=== PATIENT | female | born 1940 | race Caucasian/White ===

== ENCOUNTER 2017-02-20 12:33 | Emergency (ER) | payer MEDICARE, BC ==
--- NOTE | 2017-02-20 12:54 | EDM.PDOC ---
ED HPI GENERAL MEDICAL PROBLEM - General Chief Complaint: Skin Complaint Stated Complaint: POSSIBLE CELLULITIS Time Seen by Provider: 02/20/17 12:50 Source of Information: Reports: Patient History Limitations: Reports: No Limitations - History of Present Illness INITIAL COMMENTS - FREE TEXT/NARRATIVE: According to patient she claims that she bumped her right elbow into the wall and sustained an small cut over the posterior aspect of the elbow. She did clean it up and also keep it covered with band air. But over the past 3 days she has noticed redness and swelling over the posterior aspect of the elbow now. The redness has been spreading and has got painful. She can move the elbow with out any pain or discomfort. No fever or chills. No nausea, vomiting or malaise. Pt is not sure of her tetanus shot. Duration: Week(s): (1) Location: Reports: Upper Extremity, Right Quality: Reports: Ache Severity: Mild Associated Symptoms: Denies: Confusion, Chest Pain, Cough, Fever/Chills, Nausea/ Vomiting, Rash, Shortness of Breath, Syncope, Weakness Right Elbow Pain Score (Numeric/FACES): 3 - Related Data Allergies Allergy/AdvReac Type Severity Reaction Status Date / Time codeine Allergy Nausea Verified 02/20/17 13:24 not sure Allergy Intermediate Nausea Uncoded 05/11/15 09:11 Home Meds: Home Meds Alendronate [Fosamax] 70 mg PO DAILY 05/11/15 [History] Hydrochlorothiazide [Hydrochlorothiazide] 25 mg PO DAILY 05/11/15 [History] Simvastatin [Simvastatin] 20 mg PO QPM 05/11/15 [History] Past Medical History HEENT History: Reports: Sinusitis 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: Other (See Below) Other OB/BYN History: C section x 4 - Infectious Disease History Infectious Disease History: Reports: Chicken Pox, Measles, Mumps - Past Surgical History Female Surgical History: Reports: Section Social & Family History - Tobacco Use Smoking Status *Q: Never Smoker - Recreational Drug Use Recreational Drug Use: No Drug Use in Last 12 Months: No ED ROS GENERAL - Review of Systems Review Of Systems: See Below Constitutional: Denies: Fever, Chills HEENT: Denies: Throat Pain, Throat Swelling Respiratory: Denies: Shortness of Breath, Cough, Sputum Cardiovascular: Denies: Chest Pain, Lightheadedness GI/Abdominal: Denies: Abdominal Pain, Nausea, Vomiting Musculoskeletal: Denies: Joint Pain, Joint Swelling Skin: Reports: Erythema. Denies: Pruritis, Rash Neurological: Denies: Confusion, Dizziness Psychiatric: Denies: Agitation, Anxiety ED EXAM, SKIN/RASH Exam: See Below Exam Limited By: No Limitations General Appearance: Alert, WD/WN, No Apparent Distress Eye Exam: Bilateral Eye: EOMI, PERRL Ears: Normal External Exam, Normal Canal, Hearing Grossly Normal, Normal TMs Nose: Normal Inspection, Normal Mucosa, No Blood Throat/Mouth: Normal Inspection, Normal Lips, Normal Teeth, Normal Gums, Normal Oropharynx, Normal Voice, No Airway Compromise Head: Atraumatic, Normocephalic Neck: Normal Inspection, Supple, Non-Tender, Full Range of Motion Respiratory/Chest: No Respiratory Distress, Lungs Clear, Normal Breath Sounds, No Accessory Muscle Use, Chest Non-Tender Cardiovascular: Normal Peripheral Pulses, Regular Rate, Rhythm, No Edema, No Gallop, No JVD, No Murmur, No Rub Extremities: Normal Inspection, Normal Range of Motion, No Pedal Edema, Normal Capillary Refill Skin: Warm, Intact, Other (There is a small 1 cm scabbed wound over the psoterior aspect of the elnbow. there is erythema spreading approximatley 4cm aroundthe scab. the skin is swollen. Tender and warm to palpation.There isminimal serous drainage around the scab. Pt does have Good ROM fo the elbow joint.) Course - Vital Signs Text/Narrative:: It does appear like deep skin infection, or cellulitis of the right elbow. She had good ROM of the right elbow.Pt reassured she has cellulitis of the skin of right elbow and not joint infection. She did receive Tetanus toxoid today. Her CBC shows white count of 12.8. I have done clean sterile dressing of the wound. Advised daily dressing of the wound. Started her on Augmentin for 10 days. Also wound culture done, will followup with results. Followup in clinic if the redness and pain does not resolve in 3-5 days Or if she stats running fever with chills. Pt understand and agrees to the plan. Last Recorded V/S: Last Vital Signs Temp 97 F 02/20/17 13:10 Pulse 79 02/20/17 13:10 Resp 16 02/20/17 13:10 BP 119/63 02/20/17 13:10 Pulse Ox 98 02/20/17 13:10 - Orders/Labs/Meds Orders: Active Orders 24 hr Category Date Time Status Vaccines to be Administered [RC] PER UNIT ROUTINE Care 02/20/17 13:17 Active CULTURE WOUND + SMEAR [RM] Stat Lab 02/20/17 13:30 Received Labs: Laboratory Tests 02/20/17 Range/Units 13:30 WBC 12.8 H D (4.0-11.0) K/uL RBC 4.09 (3.80-5.80) M/uL Hgb 12.5 (11.5-16.5) g/dL Hct 36.7 L (37.0-47.0) % MCV 90 (76-96) fL MCH 30.6 (27.0-32.0) pg MCHC 34.1 (31.0-35.0) g/dL RDW 13.5 (11.0-16.0) % Plt Count 217 (150-500) K/uL MPV 11.2 H (6.0-10.0) fL Neut % (Auto) 74.8 H (45.0-70.0) % Lymph % (Auto) 16.5 L (20.0-40.0) % [place] % (Auto) 7.8 (3.0-10.0) % Eos % (Auto) 0.6 L (1.0-5.0) % Baso % (Auto) 0.3 (0.0-0.5) % Neut # (Auto) 9.58 H (2.00-7.50) K/uL Lymph # (Auto) 2.11 (1.50-4.00) K/uL [place] # (Auto) 1.00 H (0.20-0.80) K/uL Eos # (Auto) 0.08 (0.04-0.40) K/uL Baso # (Auto) 0.04 (0.02-0.10) K/uL Meds: Medications Discontinued Medications Generic Name Dose Route Start Last Admin Trade Name Freq PRN Reason Stop Dose Admin Tetanus/Diphtheria Toxoids 0.5 ml 02/20/17 13:17 02/20/17 13:27 Tenivac IM 02/20/17 13:18 0.5 ml .ONCE ONE Administration Departure - Departure Time of Disposition: 14:55 Disposition: Home, Self-Care 01 Condition: Good Clinical Impression: Cellulitis of right elbow - Discharge Information Instructions: Amoxicillin; Clavulanic Acid tablets, Cellulitis, Adult Referrals: PCP,None [Primary Care Provider] - Forms: ED Department Discharge Additional Instructions: Take Augmentin 1 tablet twice a day for 10 days. Take 1 tablet now, then repeat again tonight. Take in yogurt every day while on antibiotic. Culture of wound will be back in about 3-4 days. Keep area clean and dry. Change dressing every day. Apply Neosporin daily and cover. - Problem List & Annotations (1) Cellulitis of right elbow SNOMED Code(s): 820953124 Code(s): L03.113 - CELLULITIS OF RIGHT UPPER LIMB Status: Acute Current Visit: Yes - Problem List Review Problem List Initiated/Reviewed/Updated: Yes - My Orders Last 24 Hours: My Active Orders 02/20/17 13:17 Vaccines to be Administered [RC] PER UNIT ROUTINE 02/20/17 13:30 CULTURE WOUND + SMEAR [RM] Stat - Assessment/Plan Last 24 Hours: My Active Orders 02/20/17 13:17 Vaccines to be Administered [RC] PER UNIT ROUTINE 02/20/17 13:30 CULTURE WOUND + SMEAR [RM] Stat Assessment:: Right elbow cellulitis Plan: It does appear like deep skin infection, or cellulitis of the right elbow. She had good ROM of the right elbow.Pt reassured she has cellulitis of the skin of right elbow and not joint infection. She did receive Tetanus toxoid today. Her CBC shows elevated white countof 12.8. I have done clean sterile dressing of the wound. Advised daily dressing of the wound. Started her on Augmentin for 10 days. Also wound culture done, will followup with results. Followup in clinic if the redness and pain does not resolve in 3-5 days Or if she stats running fever with chills. Pt understand and agrees to the plan.
[2017-02-20] MEDS ORDERED: Amoxicillin/Clavulanate K 875-125 MG Tab ONE (13:10)
[2017-02-20] MEDS ORDERED: Diphtheria/Tetanus Toxoids,Adult (Td) 0.5 ML SDV IM ONE (13:17)
[2017-02-20 13:40] VITALS: BP 119/63
== END 2017-02-20 13:55 | disposition home or self-care (01) ==
LOC: LB.ED 12:33
DX: L03.113 Cellulitis of right upper limb (principal); Z88.5 Allergy status to narcotic agent; Z79.899 Other long term (current) drug therapy
CPT/HCPCS: 36415; 85025; 87070; 87077; 87186; 87205; 90471; 90714; 99284; A9270; 99283

== ENCOUNTER 2017-07-28 11:46 | Day surgery (SDC) | payer MEDICARE, BC ==
[~2017-07-28 11:46] MED LIST: Metoclopramide 10 MG/2 ML SDV IV PRN; Sodium Chloride 0.9% 10 ML Syringe FLUSH PRN
[2017-07-28] MEDS: Sodium Chloride 0.9% 1,000 ML IV SCH ×3 (12:00→14:46)
[2017-07-28] MEDS ORDERED: Propofol 500 MG/50 ML SDV ONE (14:00)
[2017-07-28 16:42] VITALS: BP 132/70
--- NOTE | 2017-07-28 20:52 | OR ---
DATE OF OPERATION: 07/28/2017 PREOPERATIVE DIAGNOSIS: Blood per rectum. POSTOPERATIVE DIAGNOSIS: Blood per rectum. PROCEDURE: Colonoscopy. ANESTHESIA: MAC. ESTIMATED BLOOD LOSS: None. COMPLICATIONS: None. INDICATION FOR THE PROCEDURE: The patient is a 76-year-old female who last week presented to the clinic with lower rectal bleeding. The patient was hemodynamically stable. She was sent home and scheduled for an outpatient colonoscopy. Last colonoscopy per patient was about 10 years ago. She was on a 10-year follow up plan. DESCRIPTION OF PROCEDURE: Informed consent was obtained from the patient. The patient was taken to the operating room, placed on table in the left lateral decubitus position. Monitored anesthesia care was administered. Digital rectal exam was normal. Colonoscope was then advanced through the anus directed toward the cecum. Cecum was reached and identified by appendiceal orifice and ileocecal valve. The ileocecal valve was intubated. Terminal ileum did appeared to be normal. Colonoscope was then withdrawn back into the colon and slowly backed out. The patient did have a few scattered diverticula throughout the colon. Otherwise, no areas of inflammation in the colon. No signs of current or previous bleeding. Rectum was also unremarkable. Colonoscope was then withdrawn. FINDINGS: Normal terminal ilium and few scattered diverticula throughout the colon. No signs of inflammation. No signs of bleeding. RECOMMENDATIONS: Would recommend no further screening colonoscopies. The patient may be scoped again if she continues to have any issues likely source of bleeding from diverticulosis. TALA/DARLING /[id number]
== END 2017-07-28 16:30 | disposition home or self-care (01) ==
LOC: LB.SDS 11:46
PROVIDERS: ATTEND Surgery
DX: K62.5 Hemorrhage of anus and rectum (principal); K92.2 Gastrointestinal hemorrhage, unspecified; K57.30 Diverticulosis of large intestine without perforation or abscess without bleeding; Z88.5 Allergy status to narcotic agent; Z79.82 Long term (current) use of aspirin; Z79.899 Other long term (current) drug therapy
CPT/HCPCS: 96374; J2704; J7040; J7050

== ENCOUNTER 2022-10-03 14:00 | Emergency (ER) | payer MEDICARE, BC ==
[2022-10-03 14:14] VITALS: BP 118/67
[2022-10-03 14:52] VITALS: PULSE 97
[2022-10-03] MEDS ORDERED: traMADol 50 MG Tab ONE (15:00)
== END 2022-10-03 15:10 | disposition home or self-care (01) ==
LOC: LB.ED 14:00
DX: R07.1 Chest pain on breathing (principal); Z88.5 Allergy status to narcotic agent
CPT/HCPCS: 71046; 99283; 99284; A9270-GY

== ENCOUNTER 2022-10-30 08:40 | Emergency (ER) | payer MEDICARE, BC ==
[2022-10-30 10:17] LABS: BASOPHILS ABSOLUTE AUTO 0.07 K/uL (0.02-0.10); BASOPHILS PERCENT AUTO 0.5 % (0.0-0.5); EOSINOPHILS ABSOLUTE AUTO 0.28 K/uL (0.04-0.40); HEMATOCRIT 32.1 % (37.0-47.0); HEMOGLOBIN 10.6 g/dL (11.5-16.5); LYMPHOCYTES ABSOLUTE AUTO 3.71 K/uL (1.50-4.00); LYMPHOCYTES PERCENT AUTO 26.5 % (20.0-40.0); MEAN CORPUSCULAR HEMOGLOBIN 33.2 pg (27.0-32.0); MEAN CORPUSCULAR VOLUME 101 fL (76-96); MEAN PLATELET VOLUME 10.6 fL (6.0-10.0); MONOCYTES ABSOLUTE AUTO 3.06 K/uL (0.20-0.80); MONOCYTES PERCENT AUTO 21.8 % (3.0-10.0); NEUTROPHILS PERCENT AUTO 49.2 % (45.0-70.0); RED BLOOD CELL COUNT 3.19 M/uL (3.80-5.80)
[2022-10-30 10:19] LABS: APPEARANCE,URINE CLEAR (CLEAR); BILIRUBIN,URINE NEGATIVE (NEGATIVE); COLOR,URINE YELLOW; GLUCOSE,URINE NEGATIVE (NEGATIVE); KETONES,URINE NEGATIVE (NEGATIVE); LEUKOCYTE ESTERASE,URINE NEGATIVE (NEGATIVE); NITRITE,URINE NEGATIVE (NEGATIVE); OCCULT BLOOD,URINE NEGATIVE (NEGATIVE); PROTEIN,URINE 100 mg/dL (NEGATIVE); UROBILINOGEN,URINE 0.2 E.U./dL (0.2-1.0)
[2022-10-30 10:26] LABS: PLATELET COUNT,PLT 52 K/uL (150-500)
[2022-10-30 10:30] LABS: RBC,URINE 0-5 /HPF; WBC,URINE NOT SEEN /HPF
[2022-10-30 10:42] LABS: ALBUMIN 3.4 g/dL (3.4-5.0); ANION GAP 17.6 mmol/L (5.0-15.0); BILIRUBIN TOTAL 0.6 mg/dL (0.0-1.0); CALCIUM 10.2 mg/dL (8.5-10.1); CARBON DIOXIDE,CO2 24.2 mmol/L (21.0-32.0); CREATININE 0.75 mg/dL (0.55-1.02); EST CRCL DRUG DOSING (CG) 42.26 mL/min; POTASSIUM,K 3.8 mmol/L (3.5-5.1); PROTEIN TOTAL,TP 6.8 g/dL (6.4-8.2); TROPONIN I HIGH SENSITIVITY 10.1 pg/ml (<=60.4)
[2022-10-30 11:38] LABS: ACETAMINOPHEN 0.6 ug/mL
[2022-10-30 11:46] LABS: PCO2 VENOUS 30.9 mm/Hg (41-51); PH,VENOUS 7.49 (7.31-7.41)
[2022-10-30 11:47] LABS: BASE EXCESS VENOUS -0.2 mm/L (-2-3); BICARBONATE,VENOUS 23.3 mmol/L (23.0-28.0)
[2022-10-30 11:59] LABS: KETONES,BLOOD NEGATIVE (NEGATIVE)
[2022-10-30 15:46] VITALS: BP 121/69; PULSE 141
== END 2022-10-30 13:30 | disposition home or self-care (01) ==
LOC: LB.ED 08:40
DX: R10.32 Left lower quadrant pain (principal); E78.00 Pure hypercholesterolemia, unspecified; I10 Essential (primary) hypertension; Z88.5 Allergy status to narcotic agent; Z79.82 Long term (current) use of aspirin; Z79.899 Other long term (current) drug therapy
CPT/HCPCS: 36415; 71260; 73552-LT; 74177; 80053; 80143; 80179; 81001; 82009; 82803; 83605; 83690; 84443; 84484; 85025; 93005; 99284

== ENCOUNTER 2022-11-01 23:28 | Emergency (ER) | payer MEDICARE, BC ==
[2022-11-02 00:14] VITALS: BP 122/72; PULSE 135
== END 2022-11-02 00:40 | disposition home or self-care (01) ==
LOC: LB.ED 23:28
DX: R04.0 Epistaxis (principal); E78.00 Pure hypercholesterolemia, unspecified; I10 Essential (primary) hypertension; Z88.5 Allergy status to narcotic agent; Z79.82 Long term (current) use of aspirin; Z79.899 Other long term (current) drug therapy
CPT/HCPCS: 30903; 99283

== ENCOUNTER 2022-11-22 10:43 | Inpatient (IN) | payer MEDICARE, BC ==
[2022-11-22] MEDS ORDERED: Sodium Chloride 0.9% 10 ML Syringe FLUSH PRN (11:28)
[2022-11-22] MEDS: Sodium Chloride 0.9% 1,000 ML IV SCH ×3 (12:05→17:49)
[2022-11-22 12:11] LABS: HEMATOCRIT 32.5 % (37.0-47.0); HEMOGLOBIN 10.9 g/dL (11.5-16.5); MEAN CORPUSCULAR HEMOGLOBIN 32.5 pg (27.0-32.0); MEAN CORPUSCULAR HGB CONC 33.5 g/dL (31.0-35.0); MEAN CORPUSCULAR VOLUME 97 fL (76-96); MEAN PLATELET VOLUME 12.5 fL (6.0-10.0); PLATELET COUNT,PLT 73 K/uL (150-500); RED BLOOD CELL COUNT 3.35 M/uL (3.80-5.80); RED CELL DISTRIBUTION WIDTH 17.4 % (11.0-16.0)
[2022-11-22 12:27] LABS: MAGNESIUM 1.4 mg/dL (1.8-2.4); PHOSPHORUS 2.8 mg/dL (2.5-4.9)
[2022-11-22 12:32] LABS: WHITE BLOOD CELL COUNT,WBC 1.1 K/uL (4.0-11.0)
[2022-11-22 12:34] LABS: A/G RATIO 0.9 (0.8-2.0); ALBUMIN 2.7 g/dL (3.4-5.0); ANION GAP 13.4 mmol/L (5.0-15.0); BILIRUBIN TOTAL 0.8 mg/dL (0.0-1.0); BUN/CREATININE RATIO 12.3 (6-25); CARBON DIOXIDE,CO2 25.3 mmol/L (21.0-32.0); CREATININE 0.65 mg/dL (0.55-1.02); EST CRCL DRUG DOSING (CG) 48.76 mL/min; POTASSIUM,K 3.7 mmol/L (3.5-5.1); PROTEIN TOTAL,TP 5.7 g/dL (6.4-8.2)
[2022-11-22 12:36] LABS: LACTIC ACID 1.3 mmol/L (0.4-2.0)
[2022-11-22] MEDS ORDERED: cefTRIAXone 1 GM in Sodium Chloride 0.9% 50 ML IV ONE (12:53)
[2022-11-22 13:02] LABS: APPEARANCE,URINE CLEAR (CLEAR); BILIRUBIN,URINE NEGATIVE (NEGATIVE); COLOR,URINE YELLOW; GLUCOSE,URINE NEGATIVE (NEGATIVE); KETONES,URINE NEGATIVE (NEGATIVE); LEUKOCYTE ESTERASE,URINE NEGATIVE (NEGATIVE); NITRITE,URINE NEGATIVE (NEGATIVE); OCCULT BLOOD,URINE NEGATIVE (NEGATIVE); PROTEIN,URINE NEGATIVE (NEGATIVE); UROBILINOGEN,URINE 0.2 E.U./dL (0.2-1.0)
[2022-11-22] MEDS ORDERED: cefTRIAXone 1 GM Vial ONE (13:02)
[2022-11-22 13:25] LABS: POIKILOCYTOSIS FEW
[2022-11-22 13:26] LABS: ANISOCYTOSIS FEW; ELLIPTOCYTES FEW; HELMET CELLS OCCASIONAL; OVALOCYTES FEW; TEARDROP CELLS FEW
[2022-11-22] MEDS ORDERED: Acetaminophen/HYDROcodone 325-5 MG Tab PO PRN (15:44)
[2022-11-22] MEDS ORDERED: Ondansetron 4 MG Tab.DIS PO PRN (15:44)
[2022-11-22] MEDS ORDERED: traMADol 50 MG Tab PO PRN (15:44)
[2022-11-22] MEDS ORDERED: Prochlorperazine 10 MG Tab PO PRN (15:44)
[2022-11-22] MEDS ORDERED: hydrALAZINE 20 MG/ML SDV IVPUSH ONE (17:03)
[2022-11-22] MEDS: LENALIDOMIDE 10 MG PO SCH (17:51)
[2022-11-22] MEDS: Acyclovir 400 MG Tab PO SCH (19:43)
[2022-11-22] MEDS: Ferrous Sulfate 325 MG Tab PO SCH (19:43)
[2022-11-22] MEDS: Acetaminophen 325 MG Tab PO PRN (19:44)
[2022-11-22] MEDS: cefTRIAXone 1 GM in Sodium Chloride 0.9% 50 ML IV SCH (19:44)
[2022-11-22] MEDS: Azithromycin 500 MG in Sodium Chloride 0.9% 250 ML IV SCH (22:05)
[2022-11-23] MEDS: Sodium Chloride 0.9% 1,000 ML IV SCH (05:49)
[2022-11-23] MEDS: Omeprazole 20 MG Cap.CR PO SCH (07:30)
[2022-11-23 08:10] LABS: HEMATOCRIT 32.3 % (37.0-47.0); HEMOGLOBIN 10.8 g/dL (11.5-16.5); MEAN CORPUSCULAR HEMOGLOBIN 32.6 pg (27.0-32.0); MEAN CORPUSCULAR HGB CONC 33.4 g/dL (31.0-35.0); MEAN PLATELET VOLUME 11.7 fL (6.0-10.0); RED BLOOD CELL COUNT 3.31 M/uL (3.80-5.80); RED CELL DISTRIBUTION WIDTH 17.3 % (11.0-16.0)
[2022-11-23 08:21] LABS: ANION GAP 13.9 mmol/L (5.0-15.0); BUN/CREATININE RATIO 15.1 (6-25); CALCIUM 7.4 mg/dL (8.5-10.1); CARBON DIOXIDE,CO2 24.8 mmol/L (21.0-32.0); CREATININE 0.53 mg/dL (0.55-1.02); EST CRCL DRUG DOSING (CG) 59.8 mL/min; MAGNESIUM 1.6 mg/dL (1.8-2.4); POTASSIUM,K 3.7 mmol/L (3.5-5.1)
[2022-11-23 08:26] LABS: WHITE BLOOD CELL COUNT,WBC 0.8 K/uL (4.0-11.0)
[2022-11-23] MEDS: Ferrous Sulfate 325 MG Tab PO SCH ×2 (08:36→20:50)
[2022-11-23] MEDS: cefTRIAXone 1 GM in Sodium Chloride 0.9% 50 ML IV SCH ×2 (08:37→20:59)
[2022-11-23] MEDS: Acyclovir 400 MG Tab PO SCH ×2 (08:37→21:02)
[2022-11-23] MEDS: Acetaminophen 325 MG Tab PO PRN ×2 (10:24→17:58)
[2022-11-23] MEDS: LENALIDOMIDE 10 MG PO SCH (17:31)
[2022-11-23] MEDS: Azithromycin 500 MG in Sodium Chloride 0.9% 250 ML IV SCH (21:58)
[2022-11-24 08:59] LABS: BASOPHILS ABSOLUTE AUTO 0.01 K/uL (0.02-0.10); BASOPHILS PERCENT AUTO 1.2 % (0.0-0.5); EOSINOPHILS ABSOLUTE AUTO 0.03 K/uL (0.04-0.40); EOSINOPHILS PERCENT AUTO 3.5 % (1.0-5.0); HEMATOCRIT 34.4 % (37.0-47.0); HEMOGLOBIN 11.6 g/dL (11.5-16.5); LYMPHOCYTES ABSOLUTE AUTO 0.52 K/uL (1.50-4.00); LYMPHOCYTES PERCENT AUTO 60.5 % (20.0-40.0); MEAN CORPUSCULAR HEMOGLOBIN 32.6 pg (27.0-32.0); MEAN CORPUSCULAR HGB CONC 33.7 g/dL (31.0-35.0); MEAN CORPUSCULAR VOLUME 97 fL (76-96); MEAN PLATELET VOLUME 11.3 fL (6.0-10.0); MONOCYTES ABSOLUTE AUTO 0.05 K/uL (0.20-0.80); MONOCYTES PERCENT AUTO 5.8 % (3.0-10.0); NEUTROPHILS ABSOLUTE AUTO 0.25 K/uL (2.00-7.50); PLATELET COUNT,PLT 61 K/uL (150-500); RED BLOOD CELL COUNT 3.56 M/uL (3.80-5.80); RED CELL DISTRIBUTION WIDTH 16.9 % (11.0-16.0)
[2022-11-24] MEDS ORDERED: Polyethylene Glycol 3350 Powder 17 GM Packet PO ONE (09:17)
[2022-11-24 09:23] LABS: ANION GAP 10.9 mmol/L (5.0-15.0); BUN/CREATININE RATIO 15.7 (6-25); CALCIUM 7.8 mg/dL (8.5-10.1); CARBON DIOXIDE,CO2 27.7 mmol/L (21.0-32.0); CREATININE 0.51 mg/dL (0.55-1.02); EST CRCL DRUG DOSING (CG) 60.4 mL/min; POTASSIUM,K 3.6 mmol/L (3.5-5.1)
[2022-11-24] MEDS: Acyclovir 400 MG Tab PO SCH (09:30)
[2022-11-24] MEDS: Omeprazole 20 MG Cap.CR PO SCH (09:30)
[2022-11-24] MEDS: Ferrous Sulfate 325 MG Tab PO SCH (09:31)
[2022-11-24] MEDS: cefTRIAXone 1 GM in Sodium Chloride 0.9% 50 ML IV SCH (09:31)
[2022-11-24 09:49] LABS: WHITE BLOOD CELL COUNT,WBC 0.9 K/uL (4.0-11.0)
[2022-11-24 10:15] VITALS: BP 120/74; PULSE 79
== END 2022-11-24 13:30 | disposition home or self-care (01) | DRG 194 ==
LOC: LB.ED 10:43 → LB.MS 13:18
PROVIDERS: ADMIT Surgery; ATTEND Surgery
DX: J18.9 Pneumonia, unspecified organism (principal); C90.00 Multiple myeloma not having achieved remission; E87.1 Hypo-osmolality and hyponatremia; E86.0 Dehydration; M19.90 Unspecified osteoarthritis, unspecified site; Z20.822 Contact with and (suspected) exposure to COVID-19; D84.9 Immunodeficiency, unspecified; E78.00 Pure hypercholesterolemia, unspecified; Z98.890 Other specified postprocedural states; K21.9 Gastro-esophageal reflux disease without esophagitis; Z88.5 Allergy status to narcotic agent; Z79.899 Other long term (current) drug therapy
CPT/HCPCS: 36415; 71045; 80048; 80053; 81003; 83605; 83735; 84100; 85025; 85027; 87040; 96361; 96374; 99222; 99232; 99238; 99284-25; A9270-GY; J0456; J0696; J3475; J3490; J7030; J7050; Q0162; U0002

== ENCOUNTER 2023-06-19 07:52 | Emergency (ER) | payer MEDICARE, BC ==
[2023-06-19 08:10] VITALS: BP 139/91; PULSE 78
[2023-06-19] MEDS: Acetaminophen 500 MG Tab PO ONE (08:43)
[2023-06-19] MEDS: Acetaminophen 500 MG Tab ONE (08:48)
[2023-06-19] MEDS ORDERED: Nitrofurantoin Macrocrystal 50 MG Cap PO ONE (10:04)
== END 2023-06-19 09:52 | disposition home or self-care (01) ==
LOC: LB.ED 07:52
DX: S52.532A Colles' fracture of left radius, initial encounter for closed fracture (principal); Z88.5 Allergy status to narcotic agent; Z79.82 Long term (current) use of aspirin; Z79.899 Other long term (current) drug therapy; W00.9XXA Unspecified fall due to ice and snow, initial encounter
CPT/HCPCS: 29125; 73110; 99283; A9270

== ENCOUNTER 2023-09-13 20:12 | Emergency (ER) | payer MEDICARE, BC ==
[2023-09-13] MEDS ORDERED: Morphine 4 MG/ML VIAL ONE (20:29)
[2023-09-13] MEDS: Morphine 4 MG/ML VIAL IVPUSH ONE (20:35)
[2023-09-13] MEDS: Ketorolac 30 MG/ML SDV IVPUSH ONE (22:34)
[2023-09-13] MEDS ORDERED: traMADol 50 MG Tab ONE (23:00)
[2023-09-13] MEDS: Cyclobenzaprine 10 MG Tab PO ONE (23:57)
[2023-09-13] MEDS: Morphine 4 MG/ML VIAL IVPUSH PRN (23:58)
[2023-09-14] MEDS: Ketorolac 30 MG/ML SDV ONE (03:32)
[2023-09-14 05:42] VITALS: BP 164/78; PULSE 63
== END 2023-09-14 06:04 | disposition home or self-care (01) ==
LOC: LB.ED 20:12
DX: S32.029A Unspecified fracture of second lumbar vertebra, initial encounter for closed fracture (principal); S32.039A Unspecified fracture of third lumbar vertebra, initial encounter for closed fracture; Z91.041 Radiographic dye allergy status; Z88.5 Allergy status to narcotic agent; Z79.899 Other long term (current) drug therapy; Z79.82 Long term (current) use of aspirin; W10.9XXA Fall (on) (from) unspecified stairs and steps, initial encounter; M54.16 Radiculopathy, lumbar region
CPT/HCPCS: 36415; 72131; 73502-RT; 80053; 85025; 96374; 96375; 96376; 97110-GP; 97140-GP; 99283; 99284-25; A0425; A0429; A9270-GY; J1885; J2270

== ENCOUNTER 2025-02-15 11:36 | Emergency (ER) | payer MEDICARE, BC ==
[2025-02-15 12:24] LABS: BASOPHILS ABSOLUTE AUTO 0.02 K/uL (0.02-0.10); BASOPHILS PERCENT AUTO 0.6 % (0.0-0.5); EOSINOPHILS ABSOLUTE AUTO 0.06 K/uL (0.04-0.40); EOSINOPHILS PERCENT AUTO 1.9 % (1.0-5.0); LYMPHOCYTES ABSOLUTE AUTO 1.23 K/uL (1.50-4.00); LYMPHOCYTES PERCENT AUTO 38.0 % (20.0-40.0); MEAN PLATELET VOLUME 10.8 fL (6.0-10.0); MONOCYTES ABSOLUTE AUTO 0.45 K/uL (0.20-0.80); MONOCYTES PERCENT AUTO 13.9 % (3.0-10.0); NEUTROPHILS ABSOLUTE AUTO 1.48 K/uL (2.00-7.50); NEUTROPHILS PERCENT AUTO 45.6 % (45.0-70.0); PLATELET COUNT,PLT 213 K/uL (150-500); RED BLOOD CELL COUNT 4.14 M/uL (3.80-5.80); RED CELL DISTRIBUTION WIDTH 16.2 % (11.0-16.0); WHITE BLOOD CELL COUNT,WBC 3.2 K/uL (4.0-11.0)
[2025-02-15 12:44] LABS: A/G RATIO 0.8 (0.8-2.0); ALANINE AMINOTRANSFERASE,ALT 26.0 U/L (12-78); ASPARTATE AMNIOTRANSFERASE,AST 24.0 U/L (15-37); BILIRUBIN TOTAL 0.3 mg/dL (0.0-1.0); BLOOD UREA NITROGEN,BUN 16.0 mg/dL (8-26); CARBON DIOXIDE,CO2 30.3 mmol/L (21.0-32.0); CHLORIDE,CL 101.0 mmol/L (98-107); CREATININE 0.77 mg/dL (0.55-1.02); EST CRCL DRUG DOSING (CG) 39.76 mL/min; ESTIMATED GFR 76.0 mL/min (>60); GLUCOSE RANDOM 90.0 mg/dL (74-100); POTASSIUM,K 3.9 mmol/L (3.5-5.1); PROTEIN TOTAL,TP 7.2 g/dL (6.4-8.2); SODIUM,NA 139.0 mmol/L (136-145)
[2025-02-15 12:45] LABS: CORONAVIRUS COVID-19 NAA NEGATIVE (NEGATIVE); INFLUENZA A NAA NEGATIVE (NEGATIVE); INFLUENZA B NAA NEGATIVE (NEGATIVE)
[2025-02-15 14:30] VITALS: PULSE 82
[2025-02-15 14:31] VITALS: BP 123/77
== END 2025-02-15 13:38 | disposition home or self-care (01) ==
LOC: LB.ED 11:36
DX: J98.9 Respiratory disorder, unspecified (principal); B97.89 Other viral agents as the cause of diseases classified elsewhere; Z88.5 Allergy status to narcotic agent; Z91.041 Radiographic dye allergy status; Z79.899 Other long term (current) drug therapy
CPT/HCPCS: 36415; 71045; 80053; 85025; 87636; 99283